=== PATIENT | male | born 1980 | race Hispanic/Latino ===

== ENCOUNTER 2021-01-15 20:59 | Emergency (ER) | payer BC ==
[~2021-01-15] VITALS: Ht 170.2 cm; Wt 86.2 kg
[2021-01-15 21:01] VITALS: BP 128/82
[2021-01-15] MEDS ORDERED: HYDROCODONE/ACETAMINOPHEN 10/325 MG TAB PO ONE (22:00)
[2021-01-15] MEDS ORDERED: TETANUS/DIPHTHERIA TOXOID [ADULT] 0.5 ML VIAL IM ONE (22:00)
[2021-01-15 22:12] VITALS: BP 127/79
[2021-01-15] MEDS ORDERED: NAPR-1180 PO (22:17)
== END 2021-01-15 22:44 | disposition home or self-care (01) ==
LOC: EDH 20:59
DX: S60.222A Contusion of left hand, initial encounter (principal); S60.512A Abrasion of left hand, initial encounter; X58.XXXA Exposure to other specified factors, initial encounter; Y93.H2 Activity, gardening and landscaping; Y92.096 Garden or yard of other non-institutional residence as the place of occurrence of the external cause; Y99.8 Other external cause status; Z79.1 Long term (current) use of non-steroidal anti-inflammatories (NSAID)
CPT/HCPCS: 73130; 90471; 90714